=== PATIENT | female | born 1970 | race Caucasian/White ===

== ENCOUNTER → 2025-04-23 14:44 | Outpatient (CLI) | payer OTHER, SELFPAY ==
--- NOTE | 2025-04-23 14:45 | DI.US.S_ITS ---
PROCEDURE: US SOFT TISSUE HEAD AND NECK INDICATIONS: JAW SWELLING TECHNIQUE: Real-time scanning was performed of the neck region of interest, with image documentation. COMPARISON: [facility], , US SOFT TISSUE HEAD AND NECK, 03/11/2025, 14:03. IMPRESSION: Unremarkable appearance of left submandibular and parotid glands, no solid or cystic lesions Dictated by: Neo Garcia M.D. on 04/26/2025 at 14:30 Approved by: Neo Garcia M.D. on 04/26/2025 at 14:32
== END ==
LOC: US 14:45
PROVIDERS: Family Provider Registered Nurse Women's Health Care, Ambulatory; PCP Registered Nurse; Referring Provider Registered Nurse; Visit Provider Registered Nurse
DX: R22.0 Localized swelling, mass and lump, head (principal)
CPT/HCPCS: 76536